=== PATIENT | female | born 1990 | race African-American/Black ===

== ENCOUNTER 2017-03-26 10:54 | Outpatient (CLI) | payer BC, MEDICAID ==
[~2017-03-26] VITALS: Ht 165.1 cm; Wt 89.0 kg
[~2017-03-26 10:54] MED LIST: INSU100V5 SQ-INSULIN; NPH,100V SC; PNV#1COM9 PO
== END 2017-03-26 14:10 | disposition home or self-care (01) ==
LOC: LDOP 10:54
PROVIDERS: ATTEND Student in an Organized Health Care Education/Training Program
DX: O24.414 Gestational diabetes mellitus in pregnancy, insulin controlled (principal); Z3A.36 36 weeks gestation of pregnancy
CPT/HCPCS: 59025; 76818; 76819; 99211; G0463

== ENCOUNTER 2017-03-27 11:09 | Outpatient (CLI) | payer BC, MEDICAID | END 2017-03-27 13:44 | disposition home or self-care (01) | LOC: LDOP 11:09 | PROVIDERS: ATTEND Student in an Organized Health Care Education/Training Program | DX: O76 Abnormality in fetal heart rate and rhythm complicating labor and delivery (principal); O24.419 Gestational diabetes mellitus in pregnancy, unspecified control; Z3A.36 36 weeks gestation of pregnancy | CPT/HCPCS: 59025; 76818; 76819; 99211; G0463 ==

== ENCOUNTER 2017-04-22 09:38 | Inpatient (IN) | payer BC, MEDICAID ==
[~2017-04-22] VITALS: Ht 154.9 cm; Wt 92.7 kg
[2017-04-23] MEDS ORDERED: SODIUM CITRATE/CITRIC ACID 30 ML UDC PO PRN (02:30)
[2017-04-23] MEDS ORDERED: D5%-LACTATED RINGERS 1,000 ML IV SCH (02:30)
[2017-04-23] MEDS ORDERED: LACTATED RINGERS 1,000 ML IV SCH ×2 (02:30→05:12)
[2017-04-23] MEDS ORDERED: CALCIUM CARBONATE 500 MG TAB.CHEW PO PRN ×2 (02:30→11:00)
[2017-04-23] MEDS ORDERED: FENTANYL PF 100 MCG/2ML IV PRN (02:30)
[2017-04-23] MEDS ORDERED: OXYTOCIN 30U/ 0.9% NaCL 500ML 500 ML IV ONE ×2 (02:30→10:32)
[2017-04-23] MEDS ORDERED: METOCLOPRAMIDE 5 MG/ML, 2ML IVPush PRN (02:30)
[2017-04-23] MEDS ORDERED: ONDANSETRON 2MG/ML, 2ML IVPush PRN (02:30)
[2017-04-23] MEDS ORDERED: LIDOCAINE 1%, 20ML ONE (02:34)
[2017-04-23] MEDS ORDERED: MISOPROSTOL 200 MCG TABLET ONE (02:34)
[2017-04-23] MEDS ORDERED: OXYTOCIN 30U/ 0.9% NaCL 500ML 500 ML ONE ×2 (02:35→10:29)
[2017-04-23] MEDS ORDERED: NEWBORN KIT ONE (02:35)
[2017-04-23 02:52] VITALS: BP 139/83
[2017-04-23] MEDS: FENTANYL PF 100 MCG/2ML IVPush PRN ×2 (02:52→04:13)
[2017-04-23] MEDS ORDERED: PENICILLIN GK 5,000,000 UNITS in DEXTROSE 5% 100 ML IVPB ONE (03:00)
[2017-04-23] MEDS ORDERED: FENTANYL PF 100 MCG/2ML ONE (04:09)
[2017-04-23] MEDS ORDERED: FENTANYL/BUPIV./NS/PF 250 ML EPIDCONT SCH (05:12)
[2017-04-23] MEDS ORDERED: INSULIN REGULAR 100 UNITS/ML, 3ML VIAL SQ-INSULIN SCH ×2 (05:30→17:00)
[2017-04-23] MEDS ORDERED: LACTATED RINGERS 1,000 ML IVBOLUS PRN (05:30)
[2017-04-23] MEDS ORDERED: EPHEDRINE 50 MG/ML, 1ML IVPush PRN (05:30)
[2017-04-23] MEDS ORDERED: NALOXONE 0.4 MG/ML, 1ML IVPush PRN (05:30)
[2017-04-23] MEDS ORDERED: PENICILLIN GK 2,500,000 UNITS in DEXTROSE 5% 100 ML IV SCH (07:00)
[2017-04-23] MEDS: OXYTOCIN 30U/ 0.9% NaCL 500ML 500 ML IV SCH ×2 (10:54→20:54)
[2017-04-23] MEDS ORDERED: MISOPROSTOL 200 MCG TABLET SL PRN (11:00)
[2017-04-23] MEDS ORDERED: ACETAMINOPHEN 325 MG TABLET PO PRN (11:00)
[2017-04-23] MEDS ORDERED: HYDROcodone/APAP 5/325 TABLET PO PRN ×2 (11:00)
[2017-04-23 12:07] LABS: ASPARTATE AMINO TRANSFERASE 15 U/L (15-37); BLOOD UREA NITROGEN 8 mg/dL (7-18)
[2017-04-23 12:20] VITALS: BP 123/73
[2017-04-23] MEDS: IBUPROFEN 600 MG TABLET PO PRN ×2 (15:31→21:23)
[2017-04-23 16:00] VITALS: BP 125/76
[2017-04-23] MEDS: INSULIN REGULAR 100 UNITS/ML, 3ML VIAL SQ-INSULIN SCH ×3 (16:00→21:00)
[2017-04-23 20:20] VITALS: BP 122/71
[2017-04-23] MEDS: DOCUSATE 100 MG CAPSULE PO PRN (21:23)
[2017-04-23] MEDS: INSULIN NPH HUMAN 100 UNIT/ML, 3ML VIAL SQ-INSULIN SCH (22:05)
[2017-04-24 00:34] VITALS: BP 120/80
[2017-04-24 04:00] VITALS: BP 120/67
[2017-04-24] MEDS: OXYTOCIN 30U/ 0.9% NaCL 500ML 500 ML IV SCH ×2 (06:54→16:54)
[2017-04-24] MEDS: INSULIN REGULAR 100 UNITS/ML, 3ML VIAL SQ-INSULIN SCH ×6 (07:00→21:00)
[2017-04-24] MEDS ORDERED: INSULIN REGULAR 100 UNITS/ML, 3ML VIAL SQ-INSULIN SCH (07:30)
[2017-04-24] MEDS ORDERED: INSULIN NPH HUMAN 100 UNIT/ML, 3ML VIAL SQ-INSULIN SCH (07:30)
[2017-04-24] MEDS ORDERED: PRENATAL VIT/IRON/FA 1 EACH TABLET ONE (07:50)
[2017-04-24] MEDS: DOCUSATE 100 MG CAPSULE PO PRN ×2 (08:15→20:17)
[2017-04-24] MEDS: IBUPROFEN 600 MG TABLET PO PRN ×2 (08:15→20:17)
[2017-04-24] MEDS: PRENATAL VIT/IRON/FA 1 EACH TABLET PO SCH (08:15)
[2017-04-24] MEDS: INSULIN NPH HUMAN 100 UNIT/ML, 3ML VIAL SQ-INSULIN SCH ×2 (08:19→22:14)
[2017-04-24 08:25] VITALS: BP 112/72
[2017-04-24 20:10] VITALS: BP 138/90
[2017-04-25] MEDS: INSULIN REGULAR 100 UNITS/ML, 3ML VIAL SQ-INSULIN SCH ×3 (07:00→11:00)
[2017-04-25] MEDS: IBUPROFEN 600 MG TABLET PO PRN (07:48)
[2017-04-25] MEDS: PRENATAL VIT/IRON/FA 1 EACH TABLET PO SCH (07:48)
[2017-04-25] MEDS: DOCUSATE 100 MG CAPSULE PO PRN (07:48)
[2017-04-25 08:00] VITALS: BP_SYST 104; BP_SYST 126; BP_DIAS 65; BP_DIAS 85
[2017-04-25] MEDS: INSULIN NPH HUMAN 100 UNIT/ML, 3ML VIAL SQ-INSULIN SCH (08:26)
[2017-04-25] MEDS ORDERED: IBUP-1222 PO (12:10)
[2017-04-25] MEDS ORDERED: DOCU-30 PO (12:11)
== END 2017-04-25 15:48 | disposition home or self-care (01) | DRG 774 ==
LOC: LDIP 04-23 02:19 → 2NW 04-23 12:09
PROVIDERS: ADMIT Student in an Organized Health Care Education/Training Program; ATTEND Student in an Organized Health Care Education/Training Program
PROC: 10E0XZZ Delivery of Products of Conception, External Approach (ICD-10-PCS; principal; 2017-04-23)
PROC: 0HQ9XZZ Repair Perineum Skin, External Approach (ICD-10-PCS; 2017-04-23)
PROC: 00HU33Z Insertion of Infusion Device into Spinal Canal, Percutaneous Approach (ICD-10-PCS; 2017-04-23)
PROC: 3E0R3CZ (ICD-10-PCS; 2017-04-23)
PROC: 10907ZC Drainage of Amniotic Fluid, Therapeutic from Products of Conception, Via Natural or Artificial Opening (ICD-10-PCS; 2017-04-23)
DX: O24.12 Pre-existing type 2 diabetes mellitus, in childbirth (principal); E11.8 Type 2 diabetes mellitus with unspecified complications; O76 Abnormality in fetal heart rate and rhythm complicating labor and delivery; O77.0 Labor and delivery complicated by meconium in amniotic fluid; Z37.0 Single live birth; Z3A.39 39 weeks gestation of pregnancy; O70.0 First degree perineal laceration during delivery
CPT/HCPCS: 36415; 80053; 82248; 82947; 82962; 84550; 85025; 86850; 86900; J1815; J2540; J3010; J3490; J2590; J7120

== ENCOUNTER 2017-04-23 02:15 | Outpatient (CLI) | payer BC, MEDICAID | END 2017-04-23 02:16 | disposition home or self-care (01) | LOC: LDOP 02:15 | PROVIDERS: ATTEND Student in an Organized Health Care Education/Training Program | DX: Z02.9 Encounter for administrative examinations, unspecified (principal) ==